=== PATIENT | male | born 1975 | race Caucasian/White ===

== ENCOUNTER 2024-03-22 07:16 | Emergency (ER) | payer OTHER, SELFPAY ==
[2024-03-22 07:16] VITALS: BMI 28.6
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
[2024-03-22 07:21] VITALS: BP 148/86; PULSE 85; RESP 20; TEMP 36.4; O2SAT 100
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
[2024-03-22 07:37] LABS: Basophils # 0.1 10^3/uL (0.0-0.1); Basophils % 0.6 %; Eosinophils # 0.1 10^3/uL (0.0-0.8); Eosinophils % 0.6 %; Hematocrit 56.7 % (37-53); Lymphocytes # 3.5 10^3/uL (0.8-4.8); Lymphocytes % 38.6 %; Mean Corpuscular Volume 85.1 fl (82-101); Mean Platelet Volume 10.9 fL (7.4-10.4); Monocytes # 0.4 10^3/uL (0.2-0.9); Monocytes % 4.4 %; Neutrophils # 5.04 10^3/uL (1.8-7.7); Neutrophils % 55.4 %; Nucleated Red Blood Cells % 0 %; Platelet Count 251 10^3/cmm (157-399); Red Blood Count 6.66 10^6/uL (3.85-5.65); White Blood Count 9.09 10^3/uL (3.29-11.43)
[2024-03-22 07:54] LABS: Alanine Aminotransferase 39 U/L (0-41); Albumin Level 5.3 g/dL (3.5-5.2); Alkaline Phosphatase 103 U/L (40-130); Anion Gap 16.2 (5-19); Aspartate Amino Transferase 25 U/L (0-40); Blood Urea Nitrogen 12 mg/dL (6-20); Calcium 10.2 mg/dL (8.5-10.5); Carbon Dioxide 28 mmol/L (22-29); Chloride 96 mmol/L (98-107); Globulin 3.8 g/dL (1.3-4.6); Glomerular Filtration Rate 79.1 mL/min (90-130); Glucose 141 mg/dL (65-115); Osmolality Calculated 284 mOsm/kg (285-295); Potassium 4.2 mmol/L (3.5-5.1); Sodium 136 mmol/L (136-145); Total Bilirubin 0.3 mg/dL (0.15-1.2); Total Protein 9.1 g/dL (6.6-8.7)
[2024-03-22 08:30] VITALS: BP 129/81; PULSE 88; O2SAT 98
[2024-03-22 08:35] LABS: Add Urine Microscopic? NO; Charge for UA Resulting for Rev
[2024-03-22 08:45] LABS: Bilirubin Urine Neg (Negative); Blood Urine Neg (Negative); Glucose Urine UA Norm (Normal); Ketones Urine Negative (Negative); Leukocyte Esterase Urine Negative (Negative); Nitrate Urine Negative (Negative); Protein Urine Neg (Negative); Specific Gravity, Urine 1.005 (1.005-1.030); Urine Appearance Clear (CLEAR); Urine Color Yellow (Yellow); Urobilinogen Urine Norm (Negative); pH Urine 7 (5-7)
[2024-03-22 09:00] VITALS: BP 132/88; PULSE 78; O2SAT 97
[2024-03-22] MEDS: ketorolac 30 mg/mL INJ IVP (09:05)
[2024-03-22] MEDS: ondansetron 2 mg/ML SDV 2 mL 4 MG IVP (09:07)
[2024-03-22 09:30] VITALS: BP 126/88; PULSE 70; O2SAT 98
[2024-03-22 09:52] VITALS: BP 132/79; PULSE 75; RESP 16; O2SAT 97
== END 2024-03-22 09:55 | disposition home or self-care (01) ==
PROVIDERS: Emergency Provider Family Medicine
DX: S40.212A Abrasion of left shoulder, initial encounter (principal); D68.51 Activated protein C resistance; V69.88XA Occupant (driver) (passenger) of heavy transport vehicle injured in other specified transport accidents, initial encounter
CPT/HCPCS: 36415; 71045; 72040; 73030; 73562; 80053; 81003; 85025; 96374; 96375; 99284; J1885; J2405